=== PATIENT | male | born 1955 | race Caucasian/White ===

== ENCOUNTER → 2016-09-08 | Outpatient (CLI) | payer BC ==
[~2016-09-08] MED LIST: LEVO-366 PO; LISI-725 PO; WATER PILL
== END | disposition home or self-care (01) ==
LOC: C.LABSPEC 15:28
PROVIDERS: ATTEND Internal Medicine
DX: Z12.11 Encounter for screening for malignant neoplasm of colon (principal)

== ENCOUNTER → 2016-09-11 | Outpatient (CLI) | payer BC ==
[2016-09-11 14:28] LABS: ALT/SGPT 49 U/L (12-78); AST/SGOT 27 U/L (15-37); BLOOD UREA NITROGEN 23 mg/dl (7-18); BUN/CREATININE RATIO 24.9 (10-20); CARBON DIOXIDE 24 mmol/L (21-32); CHLORIDE 107 mmol/L (98-107); CHOLESTEROL 139 mg/dl (0-200); CREATININE 0.92 mg/dl (0.60-1.40); GLUCOSE 112 mg/dl (70-99); POTASSIUM 4.4 mmol/L (3.5-5.1); SODIUM 140 mmol/L (136-145); TRIGLYCERIDES 119 mg/dl (0-150); VERY LOW DENSITY LIPOPROT CALC 24 mg/dl
[2016-09-11 14:31] LABS: ALB/GLOB RATIO 1.2 (0.9-2); ALKALINE PHOSPHATASE 51 U/L (45-117); CALCIUM 9.4 mg/dl (8.5-10.1); CHOLESTEROL/HDL RATIO 3.2; HDL CHOLESTEROL 43 mg/dl
[2016-09-11 15:01] LABS: BASO % 0.7 %; BASO ABS # 0.04 K/uL (0-0.2); COMPLETE YES; EOS % 2.2 %; HEMATOCRIT 40.1 % (42-52); IG% 0.7 %; LYMPH % 21.7 %; LYMPH ABS # 1.19 K/uL (1.2-3.4); MEAN CELL VOLUME 94.1 fL (80-100); MEAN CORPUSCULAR HEMOGLOBIN 32.6 pg (25-34); MEAN CORPUSCULAR HGB CONC 34.7 g/dl (32-36); MEAN PLATELET VOLUME 9.8 fL (7.4-10.4); MONO % 13.5 %; NEUT % 61.2 %; PLATELET COUNT 162 K/uL (130-400); RED BLOOD COUNT 4.26 M/uL (4.7-6.1); WHITE BLOOD COUNT 5.48 K/uL (4.8-10.8)
[2016-09-11 15:08] LABS: ESTIMATED AVERAGE GLUCOSE 108 mg/dl; HA1C FLAG Normal (Normal)
== END | disposition home or self-care (01) ==
LOC: C.LABSPEC 12:28
PROVIDERS: ATTEND Internal Medicine
DX: I10 Essential (primary) hypertension (principal); E78.5 Hyperlipidemia, unspecified; R73.9 Hyperglycemia, unspecified; Z00.00 Encounter for general adult medical examination without abnormal findings

== ENCOUNTER → 2017-09-06 | Outpatient (CLI) | payer BC ==
[2017-09-06 12:51] LABS: BLOOD UREA NITROGEN 27 mg/dl (7-18); CALCIUM 8.9 mg/dl (8.5-10.1); CARBON DIOXIDE 23 mmol/L (21-32); CHOLESTEROL 126 mg/dl (0-200); CREATININE 1.11 mg/dl (0.60-1.40); GLUCOSE 114 mg/dl (70-99); POTASSIUM 4.2 mmol/L (3.5-5.1); SODIUM 136 mmol/L (136-145)
[2017-09-06 12:55] LABS: HEMOGLOBIN A1C 4.9 % (4.5-5.6); LDL CHOLESTEROL (DIRECT) 79 mg/dl
== END | disposition home or self-care (01) ==
LOC: C.LABSPEC 12:23
PROVIDERS: ATTEND Internal Medicine
DX: I10 Essential (primary) hypertension (principal); E78.5 Hyperlipidemia, unspecified; R73.9 Hyperglycemia, unspecified; N40.0 Benign prostatic hyperplasia without lower urinary tract symptoms

== ENCOUNTER → 2017-09-16 | Outpatient (CLI) | payer BC ==
[2017-09-20 18:50] LABS: FECAL OCCULT BLOOD #1 NEGATIVE (NEGATIVE); FECAL OCCULT BLOOD #2 NEGATIVE (NEGATIVE); FECAL OCCULT BLOOD #3 NEGATIVE (NEGATIVE)
== END | disposition home or self-care (01) ==
LOC: C.LABSPEC 18:49
PROVIDERS: ATTEND Internal Medicine
DX: Z12.11 Encounter for screening for malignant neoplasm of colon (principal)

== ENCOUNTER 2024-07-28 05:24 | Observation (INO) ==
--- NOTE | 2024-06-30 11:30 | PAT Medication Instructions ---
Medication Instructions Date of Service June 30, 2024 Home Medications Medication Instructions Recorded atorvastatin 20 mg tablet (Lipitor) 20 mg PO HS #90 tabs 12/27/23 lisinopril 20 mg tablet (Zestril) 20 mg PO QAM #90 tabs 12/27/23 apixaban 5 mg tablet (Eliquis) 5 mg PO BID #180 tabs 02/08/24 meloxicam 15 mg tablet 15 mg PO DAILY PRN pain #30 tabs 04/15/24 Medication List: cholecalciferol (vitamin D3) 50 mcg (2,000 unit) capsule 50 mcg PO QAM calcium carbonate (Calcium 600) 1,200 mg PO QAM atorvastatin 20 mg tablet (Lipitor) 20 mg PO HS lisinopril 20 mg tablet (Zestril) 20 mg PO QAM apixaban 5 mg tablet (Eliquis) 5 mg PO BID meloxicam 15 mg tablet 15 mg PO DAILY PRN pain omeprazole 20 mg capsule,delayed release 20 mg PO BID metoprolol succinate 25 mg tablet,extended release 24 hr 12.5 mg PO QAM psyllium husk 3.4 gram/5.4 gram oral powder (Metamucil) 1 tbsp PO QAM MEDICATION INSTRUCTIONS: ASK your surgeon for instructions meloxicam 15 mg tablet 15 mg PO DAILY PRN pain ASK your prescriber and surgeon apixaban 5 mg tablet (Eliquis) 5 mg PO BID (for spinal anesthesia: will need to hold Eliquis/apixaban at least 72 hours prior to surgery) DO NOT take the morning of surgery psyllium husk 3.4 gram/5.4 gram oral powder (Metamucil) 1 tbsp PO QAM lisinopril 20 mg tablet (Zestril) 20 mg PO QAM cholecalciferol (vitamin D3) 50 mcg (2,000 unit) capsule 50 mcg PO QAM calcium carbonate (Calcium 600) 1,200 mg PO QAM Take morning of surgery With a small sip of water, OTHERWISE NOTHING TO EAT OR DRINK AFTER MIDNIGHT: omeprazole 20 mg capsule,delayed release 20 mg PO BID metoprolol succinate 25 mg tablet,extended release 24 hr 12.5 mg PO QAM Take evening before surgery atorvastatin 20 mg tablet (Lipitor) 20 mg PO HS omeprazole 20 mg capsule,delayed release 20 mg PO BID Other Notes If you have any questions please call us at [phone] or [phone] or [phone] or [phone]
--- NOTE | 2024-07-08 10:57 | Anesthesiology Consultation ---
Date of Service July 08, 2024 Assessment & Plan (1) Encounter for pre-operative examination: Chart Review Chart Review: Acceptable Risk for Surgery (pending cardiology follow up 07/22/24) and Patient seen in Pre Admission Testing - Awaiting cardiology follow up on 07/22/24 ([place]) - Patient is NOT an ideal OPJ candidate (per patient/surgeon)- currently 23 hour obs Per PAT appt on 07/08/24, recent URI approximately two weeks ago- mild residual cough (improving; other symptoms have resolved), no recent illness/disease exposures or recent illness/disease positive tests. Will leave to surgeon's discretion if preop Covid testing needed. No preop Covid testing needed as symptom onset >11 days from surgery date; patient educated symptoms will need fully resolved by DOS Patient seen by cardio 07/07/24= Atrial fibrillation s/p cardioversion. Feels much better (dyspnea) in SR following cardioversion. HR not adequately controlled while in a fib on Holter monitor while on metoprolol 50mg. Bradycardic in SR and metoprolol dose therefor reduced to 12.5mg daily. HR acceptable in 50s today. Continue current meds. BAUTISTA- euvolemic on exam. Negative 2021 DSE. BAUTISTA much improved with cardioversion. HTN- BP elevated in office. Will recheck BMP today- increase Lisinopril to 40mg if kidney function acceptable. Will follow up in two weeks. HCTZ d/c'ed secondary to hyponatremia and abnormal renal function. Dyslipidemia well controlled. Hyponatremia- improved since HCTZ discontinued and alcohol consumption decreased. GRADY- 04/2024- improved with d/c of HCTZ. Repeat labs. Follow up in two weeks Left Anterior KIMBERLY 01/06/22= Done under SAB with 1 attempt Teaching & Discussion Pre-Anesthesia Teaching/Discussion Notes: Instructed NPO after midnight before surgery,except medications with 15 cc of water. Medication instructions provided according to the PAT guidelines. History Surgery Operation Date: 07/28/24 10:15 Proposed Procedures p Left Total Knee Arthroplasty - Jeffery Burrell DO Height/Weight Height: 5 ft 10 in Weight: 93.2 kg Allergies Allergy/AdvReac Type Severity Reaction Status Date / Time No Known Allergies Allergy Mild Verified 07/07/24 08:34 Medications Home Medications Medication Instructions Recorded Confirmed Last Taken cholecalciferol (vitamin D3) 50 50 mcg PO QAM 01/03/22 07/07/24 01/05/22 18:00 mcg (2,000 unit) capsule calcium carbonate (Calcium 600) 1,200 mg PO QAM 02/05/23 07/07/24 Unknown atorvastatin 20 mg tablet (Lipitor) 20 mg PO HS #90 tabs 12/27/23 07/07/24 Unknown apixaban 5 mg tablet (Eliquis) 5 mg PO BID #180 tabs 02/08/24 07/07/24 Unknown meloxicam 15 mg tablet 15 mg PO DAILY PRN pain #30 tabs 04/15/24 07/07/24 Unknown omeprazole 20 mg capsule,delayed 20 mg PO BID 04/21/24 07/07/24 Unknown release metoprolol succinate 25 mg 12.5 mg PO QAM 06/27/24 07/07/24 Unknown tablet,extended release 24 hr psyllium husk 3.4 gram/5.4 gram 1 tbsp PO QAM 06/27/24 07/07/24 Unknown oral powder (Metamucil) lisinopril 20 mg tablet (Zestril) 40 mg PO QAM 07/08/24 07/08/24 Unknown Past Medical History Medical History (Updated 07/08/24 @ 11:31 by Mel Clemons PA-C) Atrial fibrillation s/p cardioversion 04/22/24 currently on eliquis; f/u dr. gabriel, [facility] [place] Dyspnea on exertion Much improved with cardioversion- activity limited still from knee pain Easy bruising chronic- on Eliquis GERD (gastroesophageal reflux disease) Hx of carpal tunnel syndrome Right side- improved (s/p right CTR) Hyperlipidemia Hypertension Inflammatory polyarthritis hx; f/u [facility] rheumatology AGA (obstructive sleep apnea) Sleep study years ago showed mild AGA- no device needed per patient With most recent cardioversion 04/2024- was told he has AGA noted during procedure while he was under anesthesia Osteopenia Exercise / Class Metabolic Activity II 4-5 Yardwork/Stairs/Walk up hill (one flight of stairs - no chest pain or SOB) Past Family History Family History Brother Myocardial infarction Father Hypertension Denies family history of Ovarian cancer Prostate cancer Diabetes Breast cancer Colorectal cancer Past Surgical History Surgical History History of cardioversion (04/2024) @ [facility]--pt states it was successful Hx laparoscopic cholecystectomy Hx of arthroscopy of left knee Hx of arthroscopy of shoulder Lt, RCT repair Hx of carpal tunnel repair Rt. Hx of colonoscopy S/P hip replacement Left anterior KIMBERLY 01/06/22= Done under SAB with 1 attempt [place] teeth extracted Past Anesthesia History No Hx of Anesthesia Complications and No Family Hx of Anesthesia Complications History of PONV No Hx of PONV and No Hx of Motion Sickness Social History Smoking Status: Never smoker Do You Dip or Chew Tobacco: Yes (chews 1 can/1-2 days (advised on policy)) Hx Alcohol Use: Yes Alcohol type: beer alcohol intake frequency: 0-2 drinks per day (2 beers per day/afternoon (was 8 beers daily but decreased amount 04/2024)) Hx Substance Use: No substance use type: does not use Review of Systems - URI approximately two weeks ago (around 06/24/24) - mild residual cough Patient denies chest pain, shortness of breath, dyspnea on exertion, wheezing, palpitations. No hx of seizures, stroke, IN, apnea/snoring. No hx of blood clots or blood transfusions Physical Exam Vital Signs VITALS BP 189/80 P 52 TEMP 97.7 SP02 100% RESP 16 Constitutional no acute distress ENMT Mouth: no TMJ clicking Thyromental Distance: > or= 3.5 Finger Breadths (3.5) Mallampati Class: III Top front teeth capped Missing molars Neck + limited neck extension (mild) Respiratory normal respiratory effort; no respiratory distress Auscultation: lungs clear to auscultation bilaterally; no wheezes Cardiovascular Rate/Rhythm: regular rate and regular rhythm Heart Sounds: no murmur Vessels: no carotid bruit Musculoskeletal Spine: no pain with cervical ROM Extremities: extremities normal to inspection Psychiatric Orientation: alert Lab Results Anesthesia Preop Results Results Anesthesia Widget: WBC 5.86 K/ul (4.8-10.8) 07/08/24 Hgb 11.2 g/dl (14.0-18.0) L 07/08/24 Hct 32.8 % (42.0-52.0) L 07/08/24 Plt 157 K/uL (130-400) 07/08/24 Na 141 mmol/L (136-145) 07/07/24 K 3.7 mmol/L (3.5-5.1) 07/07/24 Cl 109 mmol/L (98-107) H 07/07/24 CO2 25 mmol/L (21-32) 07/07/24 BUN 14 mg/dl (6-23) 07/07/24 Creat 1.10 mg/dl (0.6-1.4) 07/07/24 Glucose Level 87 mg/dl (70-99(Fasting)) 07/07/24 PT 11.6 Seconds (9.0-12.0) 07/08/24 PTT 31 Seconds (21-31) 07/08/24 INR 1.1 (0.9-1.1) 07/08/24 Blood Type O Positive 07/08/24 Antibody Screen NEGATIVE 07/08/24 Testing Laboratory Results Mild anemia- stable from 04/2024 labs Electrocardiogram Date: 07/08/24 Findings: + SB @ (50bpm) Otherwise normal EKG per cardio Chest X-Ray Date: 07/08/24 Findings: + NAD FINDINGS: Heart size and pulmonary vasculature are normal. Stable mildly hyperexpanded lungs. No effusion or consolidation. Echocardiogram Date: 03/03/24 EF: 55-60% LV Function: normal RWMA: + none Other Findings: + LVH (moderate/concentric ) Valvular Disease: + no significant valvular disease Mild left atrial dilation Normal estimated RVSP at 28mmHg Atrial fibrillation Compared to prior study on 08/23/21- atrial fibrillation has replaced sinus rhythm Stress Test Date: 08/23/21 Type: DSE Negative dobutamine stress echo and EKG for ischemia at MPHR 99%. Appropriate BP response. In recovery, SVT developed lasting shortly over 30 seconds before converting to sinus rhythm. Short nonsustained episodes of the SVT occurred before maintaining sinus rhythm. Normal LV size and systolic function. EF 60 to 65%. No regional wall motion abnormalities. Mild concentric LVH. Mild left atrial dilation. No significant atrial abnormalities. (Cardio reviewed stress test- per 08/25/21 [employer] communication note= "please notify patient stress test was negative. Great news. Normal heart pumping function. the medicine used for stress testing caused his heart to go into an arrhythmia called SVT which was short-lived.") Other Testing Holter monitor 04/24/24= Atrial fibrillation with average HR of 103bpm (72- 141bpm). No significant pause. Occasional PVCs. No reported symptoms
[2024-07-28] MEDS: LR 500ML BOLUS, THEN 15ML/HR IV SCH (06:02)
[2024-07-28] MEDS: FAMOTIDINE 20 MG TAB PO SCH (06:03)
[2024-07-28] MEDS: ACETAMINOPHEN 500 MG TAB PO SCH (06:03)
[2024-07-28] MEDS: GABAPENTIN 300 MG CAP PO SCH (06:03)
[2024-07-28] MEDS: dexAMETHasone**PF** 10 MG/ML VIAL IV SCH (06:04)
[2024-07-28] MEDS ORDERED: PROPOFOL IV EMULSION 10 MG/ML 20 ML VIAL IV ONE (06:18)
[2024-07-28] MEDS ORDERED: fentaNYL citrate PF 100 MCG/2 ML VIAL ONE (06:18)
[2024-07-28] MEDS ORDERED: MIDAZOLAM HCL 1 MG/ML 2ML VIAL ONE (06:18)
[2024-07-28] MEDS ORDERED: ROPIVACAINE 0.5% 5 MG/ML 30 ML VIAL ONE (06:25)
[2024-07-28] MEDS ORDERED: HYDROmorphone INJ 1 MG/ML SYRINGE IV PRN (06:41)
[2024-07-28] MEDS ORDERED: ePHEDrine sulfate 50 MG/ML AMP IV PRN (06:41)
[2024-07-28] MEDS ORDERED: fentaNYL citrate PF 100 MCG/2 ML VIAL IV PRN (06:41)
[2024-07-28] MEDS ORDERED: ONDANSETRON INJ 2 MG/ML 2 ML VIAL IV PRN ×2 (06:41→10:34)
[2024-07-28] MEDS ORDERED: ATROPINE SULFATE 0.1 MG/ML 10ML SYR IV PRN (06:41)
--- NOTE | 2024-07-28 06:45 | History & Physical Bridge Note ---
Date of Service July 28, 2024 History & Physical Bridge Note I have examined the patient, reviewed the History & Physical and in the interval since the performance of the History & Physical I have noted the following changes of clinical significance: no changes noted
[2024-07-28] MEDS: TRANEXAMIC ACID 1,000 MG **IV Pre-op IV SCH (06:46)
[2024-07-28] MEDS: ceFAZolin 2000MG 2,000 MG/15 ML SYR IV SCH ×2 (07:00→16:41)
[2024-07-28] MEDS: LR 60ML/HR IV SCH (07:01)
[2024-07-28] MEDS ORDERED: GLYCOPYRROLATE 0.2 MG/ML VIAL ONE (07:08)
[2024-07-28] MEDS ORDERED: DEXAMETHASONE SOD INJ 4 MG/ML VIAL ONE (07:08)
[2024-07-28] MEDS ORDERED: ONDANSETRON INJ 2 MG/ML 2 ML VIAL ONE (07:08)
[2024-07-28] MEDS: ROPIV 0.5% 246mg, Ketorolac 30mg, EPINEPHrine 0.5mg in NSS INFIL SCH (07:36)
[2024-07-28] MEDS: TRANEXAMIC ACID 1,000 MG **IV Intra-op IV SCH (07:49)
--- NOTE | 2024-07-28 08:12 | Operative Report ---
PG Post Operative Report Pre & Post Diagnosis Operation Date: 07/28/24 07:00 Pre-Op Diagnosis: Left Knee Osteoarthritis Post-Op Diagnosis: Left Knee Osteoarthritis I identified the patient and participated in the time-out.: Yes Procedure Operation Date: 07/28/24 07:00 Actual Procedures p Left Total Knee Arthroplasty(Left) - Jeffery Burrell DO Surgeon Jeffery Burrell DO Watch Repairer Hunter Conway PA-C Estimated Blood Loss 50 Findings Consistent with Post-Op Diagnosis Specimens Left femoral and tibial bone Description of Procedure Implants used: I used a Teo Persona total knee arthroplasty system with a size 9 standard CR femur, F tibia, 31 oval patella, and a size 12 medial congruent polyethylene bearing. All components were cemented in place with Biomet cement. [facility] for the above procedure. He was seen in the preoperative holding area and the operative extremity was identified and signed. He was given a preoperative antibiotic, TXA, a spinal anesthetic and an adductor nerve block. He was taken back to the operating room and laid on the table in supine position. He was given basic sedation. The operative knee was then prepped and draped in sterile fashion. A timeout was done, and the patient and the operative extremity was properly identified. A midline incision was made directly over the patella. Dissection was taken down to the extensor mechanism. A medial parapatellar arthrotomy was used. The medial retinaculum was released and the fat pad was mostly excised. The knee was flexed and the ACL, PCL, and meniscus were removed. A drill was sent down the center of the femoral canal followed by an intramedullary heather. Off that heather a distal femoral cutting block was placed. 9 mm was resected off the distal femur at 5 of valgus. A posterior referencing AP sizing guide was then placed on the distal femur. The femur measured to be a size 9. 2 drill holes were placed in 3 of external rotation. A 4-in-1 cutting block was then impacted into place. Anterior, posterior, and chamfer cuts were then made. The proximal tibia was then exposed. An external tibial alignment guide was placed. A tibial cut guide was then anchored in place and the proximal tibia was then resected. The posterior aspect of the knee was then opened up and any additional meniscus fragments and osteophytes were removed. The tibia measured to be a size F. The tibial plate was then placed in the appropriate rotation and the tibia was drilled and punched. Trial components were then placed. I used a size 12 medial congruent polyethylene insert. The knee was brought through a full range of motion and felt to be stable. The peg holes for the femoral component were then drilled. The patella was then everted and 9 mm was resected off the posterior aspect of the patella. The patella measured to be a size 31 oval. 3 peg holes were then drilled. A trial patella was placed. The knee was once again brought through a full range of motion and felt to be stable. Trial components were then removed. The surrounding soft tissues were injected with 100 cc of an orthopedic pain control cocktail. All components were then cemented into place with Biomet cement. The final polyethylene insert was then snapped into place. Once cement was dry the tourniquet was deflated. Hemostasis was obtained. A dilute betadyne lavage was then done for 3 minutes. The joint was then irrigated with normal saline solution. The medial parapatellar arthrotomy was then closed with #1 Vicryl suture. The skin was closed with 2-0 Vicryl, 3-0V lock suture, and nika. A soft compressive dressing was placed. He was then transferred to a hospital bed and taken to the postanesthesia care unit in stable condition. He tolerated the procedure well. Hunter Conway PA-C, was present for the entire procedure. He was critical for patient positioning, prepping, draping, retraction exposure, wound closure and application of sterile dressing. I attest to the content of the Intraoperative Record and any orders documented therein. Any exceptions are noted below.
[2024-07-28] MEDS: ORTHO JOINT ANESTHETIC ONE (08:20)
--- NOTE | 2024-07-28 09:02 | XRay Report ---
XR knee LT 1 or 2V routine CLINICAL HISTORY: Surgical Post Op COMPARISON: None FINDINGS: Left knee prosthesis shows no hardware complication. There is expected soft tissue gas. Sk in nika are present. IMPRESSION: Unremarkable postoperative exam. ACT 112: Negative or not required by law. Electronically signed by: Ramin Thomas M.D. 07/28/2024 9:01 AM
[2024-07-28] MEDS ORDERED: bisacodyL 10 MG SUPP PR PRN (10:34)
[2024-07-28] MEDS ORDERED: NALOXONE HCL 0.4 MG/1 ML VIAL/CARP IV PRN (10:34)
[2024-07-28] MEDS ORDERED: METOCLOPRAMIDE HCL INJ 5 MG/ML 2 ML VIAL IV PRN (10:34)
[2024-07-28] MEDS ORDERED: MAGNESIUM HYDROXIDE SUSP 30 ML UDC PO PRN (10:34)
[2024-07-28] MEDS: KETOROLAC TROMETHAMINE 15 MG/ML VIAL IV SCH (11:37)
[2024-07-28] MEDS: HYDROmorphone INJ 0.5 MG/0.5 ML SYR IV PRN (11:37)
[2024-07-28] MEDS: amLODIPine BESYLATE 5 MG TAB PO SCH (11:40)
[2024-07-28] MEDS: lisinopril 40 MG TAB PO SCH (11:41)
[2024-07-28] MEDS: METOPROLOL SUCC 25MG EXT REL TAB PO SCH (11:41)
[2024-07-28] MEDS: MULTIVITAMIN TAB PO SCH (11:42)
[2024-07-28] MEDS: CALCIUM CARBONATE 1250MG TAB PO SCH (11:43)
[2024-07-28] MEDS: CHOLECALCIFEROL 25 MCG (1000 UNITS) TAB PO SCH (11:43)
[2024-07-28] MEDS: PANTOprazole 40 MG TAB PO SCH (11:43)
[2024-07-28] MEDS: PSYLLIUM or GUAR GUM FIBER 4GM PACKET PO SCH (11:44)
[2024-07-28] MEDS: KETOROLAC 30 MG/ML VIAL ONE (14:17)
[2024-07-28] MEDS: DOCUSATE SODIUM 100 MG CAP PO SCH (14:42)
[2024-07-28] MEDS: SENNA 8.6 MG TAB PO SCH (20:38)
[2024-07-28] MEDS: ATORVASTATIN 20 MG TAB PO SCH (20:38)
[2024-07-28] MEDS: ACETAMINOPHEN 500 MG TAB PO PRN (23:30)
[2024-07-28] MEDS: oxyCODONE HCL IR 5 MG TAB (IMMEDIATE RELEASE) PO PRN (23:30)
[2024-07-29 07:53] VITALS: RESP 20
[2024-07-29] MEDS: APIXABAN 5 MG TABLET PO SCH (07:57)
--- NOTE | 2024-07-29 09:12 | Orthopedic Progress Note ---
Date of Service July 29, 2024 Assessment & Plan (1) Status post left knee replacement: (2) Aftercare following left knee joint replacement surgery: Plan 69-year-old male POD# 1 s/p left total knee replacement, doing well overall. Pain is well-controlled. Medically stable. Postop x-rays well-appearing. He is neurologically intact. Plan: 1. DVT prophylaxis w/ TEDs, SCDs, Eliquis 5 mg BID. 2. PT/OT as tolerated. WBAT on the L LE. Encourage heel slides, SLR, full knee extension w/ quad sets. 3. Pain control doing well with current pain regimen. 4. Dressing change by nursing after PT/OT, prior to discharge. Do not get dressing wet for 5 days. 5. Disposition - plan to D/C home w/ home health PT ([facility]) later today once cleared by PT/OT. 6. F/u 2 weeks post-op w/ orthopedics (Dr. Burrell's team), or as previously scheduled, for first post-op visit. Subjective Patient is POD# 1 s/p left total knee arthroplasty by Dr. Burrell on 07/28/2024. Patient says his pain is well-controlled this morning. Denies CP, SOB, N/V, L LE paresthesia. He has home health PT ([facility]) arranged to come to the house for therapy. Patient says that he will be ready to go home today. Review of Systems All systems reviewed & are unremarkable except as noted in HPI & below. Physical Exam GENERAL: AA&Ox3, NAD. Pleasant, affect is calm. Sitting upright in bed and appears comfortable. RESPIRATORY: Normal respiratory effort with no signs of distress. CHEST/AXILLA: Chest movement symmetrical. No deformities noted. CARDIOVASCULAR: No edema noted. SKIN: [place], warm and dry. MS/EXTREMITY: Knee dressing & DORETHA wrap c/d/i. FRANK hose donned to contralateral LE. + ankle dorsi/plantarflexion. NVI distally. Calf soft/NT. PT/DP pulses intact, 2+. Able to SLR without assistance. Results & Data Results & Data Laboratory Results . Diagnostic Findings . Knee X-Ray 07/28/24 08:10 XR knee LT 1 or 2V routine CLINICAL HISTORY: Surgical Post Op COMPARISON: None FINDINGS: Left knee prosthesis shows no hardware complication. There is expected soft tissue gas. Skin nika are present. IMPRESSION: Unremarkable postoperative exam. ACT 112: Negative or not required by law. Electronically signed by: Ramin Thomas M.D. 07/28/2024 9:01 AM PG Care Time/CCT Total # of Minutes Spent Total Time Spent with Patient: Total time spent is greater than 50% in coordination of care (as documented) at patient's floor/unit and/or counseling patient: [place] [address] Post Operative Follow-Up Patient Type Established History Problem Focused Exam Problem Focused Medical Decision Making Straight Forward Diagnoses Status post left knee replacement Z96.652 Aftercare following left knee joint replacement surgery Z47.1; Z96.652
[2024-07-29 11:31] VITALS: BP 160/80; PULSE 54; TEMP 97.9; O2SAT 98
--- NOTE | 2024-07-29 16:20 | Discharge Summary ---
Date of Service July 29, 2024 Admission HPI (Per Admitting) Yanick is a pleasant 69-year-old male who is well known to me. I have done a hip replacement on him in the past. He is now dealing with bilateral knee pain. X-rays have shown advanced arthritis of both knees. I gave him injections. It is to the point where the injections are no longer helping. He is having increased pain in the knees. His left knee is bothering him more. He would like to proceed with a left total knee arthroplasty. We discussed diagnosis and treatment options in the office today. He is struggling some with the left knee. He has already failed years of conservative treatment. I think it is reasonable to proceed with a left total knee arthroplasty. He understands the risks, benefits, and alternatives of the procedure and is electing to proceed. Questions were answered in the office today and consents were signed. Time was spent describing the procedure and postop expectations. I will see him back in the office 2 weeks after the procedure. Admission Exam (Per Admitting) Appearance: This is a well-developed, well-nourished male in no apparent distress.Musculoskeletal: Physical exam of the left knee does show varus defo rmity. Tenderness to palpation over the distal medial femoral condyle and over the medial joint line. Principal Diagnosis Same as "Discharge Diagnosis" noted below under Discharge Instructions. Discharge Exam GENERAL: AA&Ox3, NAD. Pleasant, affect is calm. Sitting upright in bed and appears comfortable. RESPIRATORY: Normal respiratory effort with no signs of distress. CHEST/AXILLA: Chest movement symmetrical. No deformities noted. CARDIOVASCULAR: No edema noted. SKIN: Platea, warm and dry. MS/EXTREMITY: Knee dressing & DORETHA wrap c/d/i. FRANK hose donned to contralateral LE. + ankle dorsi/plantarflexion. NVI distally. Calf soft/NT. PT/DP pulses intact, 2+. Able to SLR without assistance. Discharge Data Procedures Performed Operation Date: 07/28/24 07:00 Actual Procedures p Left Total Knee Arthroplasty(Left) - Jeffery Burrell DO Ordered Studies 07/28/24 05:00 US - OR guided needle placemen Routine Hospital Course (1) Status post left knee replacement: (2) Aftercare following left knee joint replacement surgery: Plan On July 28, 2024 Yanick arrived at [facility] operating room and underwent a left total knee replacement without complications. Patient had an adductor canal block and spinal anesthetic for the procedure. Postoperatively, patient was transferred to the general orthopedic floor in stable condition and eventually started onto Eliquis 5 mg twice daily (home medication) for DVT prophylaxis as appropriate. Patient's hospital course was uneventful. On postoperative day #1, patient's vital signs were stable and pain was well-controlled. Patient was able to participate well with physical therapy, safely performing the necessary ambulation and range of motion exercises and properly demonstrating ADL tasks. Patient was then discharged home in stable condition, with [facility] to begin. Patient will follow-up with orthopedics in 2 to 3 weeks for postoperative care. PG Care Time/CCT Total # of Minutes Spent Total Time Spent with Patient: Total time spent is greater than 50% in coordination of care (as documented) at patient's floor/unit and/or counseling patient: Discharge Plan Discharge Items Patient Disposition: Home - Self-Care Reason For Visit: Left Knee Osteoarthritis Discharge Diagnosis: Left knee replacement Activity: Per Instructions section Non-emergency contact: Surgeon Call non-emergency contact if: your wound has increased redness and your wound has increased drainage Follow-up/Referrals: Trever Emery DO [Primary Care Provider] - Aj Rivers PA-C [Physician International Exchange Coordinator] - (08/13/24 @ 09:00) Diet: Regular Addtl Attending Provider Instructions: Activity and Therapy Recommendations: * If you are using [facility] then therapy will be provided at your home until they feel you have accomplished all of your goals. * If you are using [facility] then Physical Therapy will be provided until they feel you are ready to start Outpatient Physical Therapy. * If you are not using home therapy then Outpatient Physical Therapy should start about 3-5 days from your day of surgery. Therapy will last about 6-10 weeks * It is important not to put a pillow under your knee when you are relaxing or sleeping. It is just as important to make sure you are getting your knee perfectly straight as it is to regain your knee bend. * You were shown a series of exercises in the hospital. Do these exercises three times each day including the exercises you were shown in physical therapy. * Get up and walk several times each day. For the first four weeks, try not to stand or walk for more than one hour at a time. If you do stand or walk for more than one hour, you will not hurt anything, but your leg will likely swell. * As you feel comfortable, you may change from the walker or crutches to a cane and then to independent walking. Medications: * Narcotic You will likely be sent home from the hospital with a prescription for the narcotic pain medication that worked best throughout your stay. * Cefadroxil -take the antibiotic twice a day for 10 days to help prevent infection. * Continue your Eliquis as prescribed. * Other medications may be prescribed for specific circumstances. If you have any questions, please call the office at . * Resume previous home medications unless otherwise instructed TEDs/Elastic Stockings: The white elastic stockings help limit swelling and prevent blood clots from forming in your legs.~ The more you wear them, the more they work. Wear them for 2 weeks. Dressing Care: The dressing can be changed after physical therapy on postop day #1. Daily dry dressing changes for a few days, especially if the incision is still draining some. If the incision is not draining then you may leave the nika open to air. If there is a little bit of drainage or if the nika are getting stuck on your clothing then cover the incision with a dry dressing. The nika will be removed at your 2 week follow-up appointment. Showering: You may shower 5 days from the day of surgery as long as the incision is no longer draining. You may shower with the nika exposed. Let soapy water run over the nika and pat them dry. Do not scrub or soak the incision. Diet: You may resume your previous diet. Things To Watch For: * Drainage from the incision site that occurs more than one week after your surgery. * Increased redness at the incision site. * Fever above 102 degrees Fahrenheit. * Unusual chest pain or shortness of breath. * Call [facility] at with any of the above problems Follow-Up Visit: Follow-up with Dr. Burrell's office 2-3 weeks after your day of surgery. We will remove your nika and answer any questions. If you have any additional questions or concerns, Dr Burrell is usually in the office at the same time and will be available An appointment was probably scheduled when you signed-up for surgery in the office. If you have any questions call Office Instructions: More detailed instructions as well as Frequently Asked Questions were provided in a folder by our office when you signed-up for surgery. Please review these instructions when you get home. If you have any further questions or concerns, please feel free to call the office at [phone] Pending Studies at Discharge: No Stand-Alone Forms: My [facility], Pain - Opioid Pain Management, Smoking Cessation Medications and DC Order Prescriptions: New cefadroxil 500 mg capsule 500 mg PO BID 10 Days Qty: 20 0RF oxycodone 5 mg tablet 5 mg PO Q6H PRN (Reason: pain) Qty: 30 0RF Continued atorvastatin [Lipitor] 20 mg tablet 20 mg PO HS Qty: 90 3RF Eliquis 5 mg tablet 5 mg PO BID Qty: 180 3RF calcium carbonate [Calcium 600] 600 mg calcium (1,500 mg) tablet 1,200 mg PO QAM cholecalciferol (vitamin D3) 50 mcg (2,000 unit) capsule 50 mcg PO QAM meloxicam 15 mg tablet 15 mg PO DAILY PRN (Reason: pain) Qty: 30 2RF lisinopril 40 mg tablet 40 mg PO DAILY Qty: 90 3RF amlodipine 2.5 mg tablet 2.5 mg PO DAILY Qty: 30 2RF metoprolol succinate 25 mg tablet extended release 24 hr 12.5 mg PO QAM Metamucil 3.4 gram/5.4 gram Powder 1 tbsp PO QAM Rx Instructions: mix into at least 8 oz of water or juice before administering omeprazole 20 mg capsule,delayed release(DR/EC) 20 mg PO BID Rx Instructions: TAKE 1 CAPSULE BY MOUTH TWICE DAILY Discharge Orders: Discharge Order (Routine); Ordered 07/29/24 Ordered By: Hunter Castro/Other Patient Handouts: DVT Post Op Prevention Admission Data Admit Date/Time: 07/28/24 08:10 Attending Provider: Jeffery Burrell Admit Provider: Jeffery Burrell Primary Care Provider: Trever Emery Other Interventions: Discharge Summary Assessment (RN) Last Done: 07/29/24 10:45
--- NOTE | 2024-08-01 07:05 | Anesthesiology Progress Note ---
Date of Service August 01, 2024 Anesthesia Post Procedure Pain Intensity Left Knee: Pain Intensity: 3 Transfer of Care Handoff Completed per policy Notes Mental Status: alert / awake / arousable and participated in evaluation Patient Amnestic to Procedure: Yes Nausea / Vomiting: adequately controlled Pain: adequately controlled Airway Patency, RR, SpO2: stable & adequate BP & HR: stable & adequate Hydration State: stable & adequate Neuraxial Anesthesia: was administered and sensory block is resolving Anesthetic Complications: no major complications apparent and Pt Satisfied with anesthetic care
== END 2024-07-29 11:38 | disposition home or self-care (01) ==
LOC: PACUINP 05:24 → ASU 05:24 → 3W 13:41
DX: E78.5 Hyperlipidemia, unspecified; I10 Essential (primary) hypertension; M13.0 Polyarthritis, unspecified; Z79.899 Other long term (current) drug therapy; Z79.01 Long term (current) use of anticoagulants; I48.91 Unspecified atrial fibrillation; K21.9 Gastro-esophageal reflux disease without esophagitis; M17.12 Unilateral primary osteoarthritis, left knee; G47.33 Obstructive sleep apnea (adult) (pediatric)